=== PATIENT | female | born 1995 | race Two or more races ===

== ENCOUNTER 2019-09-27 08:53 | Emergency (ER) | payer MEDICARE, OTHER ==
[~2019-09-27] VITALS: Ht 162.6 cm; Wt 89.8 kg
[2019-09-27 08:57] VITALS: BP 139/88
== END 2019-09-27 10:05 | disposition home or self-care (01) ==
LOC: ER 08:53
DX: F31.9 Bipolar disorder, unspecified (principal); Z76.0 Encounter for issue of repeat prescription